=== PATIENT | female | born 1975 | race Caucasian/White ===

== ENCOUNTER → 2016-10-09 | Outpatient (CLI) | payer BC ==
[~2016-10-09] MED LIST: CLR10 PO; EPP3/2 IM; FLUT0.15; LEVO100T7 PO; MULT-506 PO; OXYC-57 PO; PROAIR INH; [UNRECOGNIZED DRUG - OTHER] PO; vitamin d PO
--- NOTE | 2016-10-10 07:38 | MAMMOGRAPHY REPORT ---
BILATERAL FIRST EVER DIGITAL SCREENING MAMMOGRAM TOMOSYNTHESIS WITH CAD: 10/09/2016 CLINICAL HISTORY: Routine screening examination. TECHNIQUE: Breast tomosynthesis in addition to standard 2D mammography was performed. Current study was also evaluated with a Computer Aided Detection (CAD) system. COMPARISON: No prior exams were available for comparison. BREAST COMPOSITION: The tissue of both breasts is heterogeneously dense, which may obscure small ma sses. FINDINGS: There are a few scattered benign appearing microcalcifications, but a discrete grouping o f microcalcifications in the anterior subareolar right breast. Although these could represent benig n calcifications such as milk of calcium, additional dedicated spot magnification views are recommen ded. There are multiple bilateral circumscribed masses scattered throughout the breasts. The circumscrib ed borders are best appreciated on the tomosynthesis images. This is a typically benign mammographi c pattern, most likely representing cysts/fibrocystic changes. No suspicious spiculated or irregula r mass or focal area of architectural distortion is seen bilaterally. IMPRESSION: ACR BI-RADS CATEGORY 0: INCOMPLETE EVALUATION: NEED ADDITIONAL IMAGING EVALUATION The grouping of microcalcifications in the anterior right breast needs additional evaluation. The patient will be called to schedule an appointment. Approximately 10% of breast cancers are not detected with mammography. A negative mammographic repor t should not delay biopsy if a clinically suggestive mass is present. Tamara Hitchcock M.D. ay/:10/09/2016 16:36:03 Tank Stave Assembler: Tina LEUNG)(Shirley), [facility] letter sent: Addl Imaging 0 BI-RADS Code: ACR BI-RADS Category 0: Incomplete Evaluation: Need Additional Imaging Evaluation
== END | disposition home or self-care (01) ==
LOC: C.MAMM 14:40
PROVIDERS: ATTEND Obstetrics & Gynecology
DX: Z12.31 Encounter for screening mammogram for malignant neoplasm of breast (principal); R92.0 Mammographic microcalcification found on diagnostic imaging of breast

== ENCOUNTER → 2016-10-24 | Outpatient (CLI) | payer BC ==
--- NOTE | 2016-10-24 15:02 | MAMMOGRAPHY REPORT ---
UNILATERAL RIGHT DIGITAL DIAGNOSTIC MAMMOGRAM AND TARGETED RIGHT ULTRASOUND: 10/24/2016 CLINICAL HISTORY: 41 year-old woman called back from baseline screening mammogram for microcalcifica tions in the anterior right breast. Patient does not have a significant family history of breast ca ncer, but was exposed to water contamination at an early age putting her at risk for developing cert ain cancers. TECHNIQUE: Spot magnification right CC and ML views were obtained. COMPARISON: Comparison is made to exam dated: 10/09/2016 mammogram - [facility]. BREAST COMPOSITION: The tissue of the right breast is heterogeneously dense, which may obscure smal l masses. FINDINGS: The spot magnification views demonstrate microcalcifications in the anterior upper outer r ight breast. On the spot magnification CC view the calcifications appear smudgy and some demonstrat e layering on the spot magnification MLO view, suggesting benign milk of calcium. However, not all of the calcifications layer and therefore a short interval follow-up diagnostic mammogram including spot magnification views is recommended to ensure stability in 6 months. A dominant partially circu mscribed 16 mm mass is also identified in the right upper outer quadrant on the spot magnification v iew, for which additional sonographic evaluation was performed. Real-time high-resolution ultrasound was performed throughout the right breast. There are multiple scattered anechoic round and oval simple cysts. However, in the 12:00 right breast, 2 cm from the n ipple, there is an isoechoic microlobulated solid mass versus dense stromal fibrosis. This measures approximately 3.5 x 3.3 x 5.3 mm, and is indeterminate. In anechoic cyst in the 12:00 periareolar right breast measures 8 mm and a second anechoic cyst measures 4 mm. Another 5 mm anechoic cyst is seen in the 3:00 right breast, 2 cm from the nipple. There is an isoechoic to hypoechoic microlobul ated lesion in the 5:00 right breast, 3 cm from the nipple measuring 4.9 x 2.6 mm, but this effaces in the radial plane and may simply represent stromal fibrosis or normal breast tissue. A dominant a nechoic simple cyst is seen in the 9:00 right breast, 2 cm from the nipple, measuring 12 x 12 mm. T his correlates well with the circumscribed mammographic mass seen on the spot magnification views. In the 9:00 right breast, 4 cm from the nipple, there is a rounded isoechoic solid versus cystic mas s measuring 3.9 x 3.7 x 4.6 mm. IMPRESSION: ACR BI-RADS CATEGORY 4: SUSPICIOUS, TARGETED ULTRASOUND ACR BI-RADS CATEGORY 4: SUSPICI OUS 1. There are multiple cysts and benign-appearing calcifications within the right breast. This const ellation of findings is most compatible with benign fibrocystic changes. 2. However a short interval follow-up right mammogram including spot magnification views is recommen ded in 6 months to ensure stability of the 2 dominant groupings of microcalcifications in the anteri or right breast. 3. Multiple anechoic cysts are seen throughout the right breast on ultrasound including a dominant benign simple cyst in the 9:00 breast. However, there are some hypoechoic possible solid masses in the right breast within the 12:00, 5:00 and 9:00 axes. The lesion with the most irregular and micro lobulated borders is located in the 12:00 axis. An ultrasound guided core needle biopsy is recommen ded of this lesion in the 12:00 right breast, 2 cm from the nipple. Pending benign pathology result s, the other lesions in the right 5:00 and 9:00 axes could be followed in 6 months, at the time of r epeat assessment of the right breast microcalcifications. These results and recommendations were discussed with the patient at the time of the exam. She tent atively scheduled to the right breast ultrasound-guided biopsy and follow-up appointment prior to le aving our department. Approximately 10% of breast cancers are not detected with mammography. A negative mammographic repor t should not delay biopsy if a clinically suggestive mass is present. Tamara Hitchcock M.D. ay/:10/24/2016 13:11:47 Barber Instructor: Stephanie PÉREZ(Gayla)(Shirley), [facility] letter sent: Abnormal 4/5 BI-RADS Code: ACR BI-RADS Category 4: Suspicious Ultrasound BI-RADS: ACR BI-RADS Category 4: Suspic ious
== END | disposition home or self-care (01) ==
LOC: C.MAMM 10:47
PROVIDERS: ATTEND Obstetrics & Gynecology
DX: R92.0 Mammographic microcalcification found on diagnostic imaging of breast (principal); R92.1 Mammographic calcification found on diagnostic imaging of breast; N60.01 Solitary cyst of right breast

== ENCOUNTER → 2016-10-31 | Outpatient (CLI) | payer BC ==
--- NOTE | 2016-10-31 15:24 | Discharge Instructions ---
Discharge Instructions Procedure Procedure Date: Oct 31, 2016. Reason for visit: Right Mass. Discharge Discharge Date: Oct 31, 2016. Discharge Diagnosis: post right breast ultrasound guided core biopsy in the 12:00 axis Instructions Activity Recommendations: Additional Limitations (see below) Return to School/Work: no limitations Recommended Home Diet: No Limitations Provider Instructions: ACTIVITY RECOMMENDATIONS: * No lifting, pushing, pulling or exercising the affected side for three days. RETURN TO SCHOOL/WORK: * You may return to work/school after the procedure, but do not perform any strenuous activities for 24 to 48 hours. MEDICATIONS: * Tylenol (two 325 mg) every four to six hours if needed for mild pain (if not allergic to Tylenol). DIET: * Resume previous diet. SPECIAL CARE INSTRUCTIONS: * Keep biopsy site dry for 24 hours. May shower after 24 hours, but do not soak (bathe) incision. * May remove Tegaderm (plastic patch) tomorrow AFTER showering. * Leave the steri-strips on for one week. Allow the steri-strips to fall off by themselves. If not off after one week, you may remove them. You may place a Bandaid crosswise over the strips, if desired. * Apply ice 10 minutes on and 10 minutes off as needed. * Wear a bra at bedtime to sleep more comfortably for 2-3 days. * Your referring physician should have the results after approximately 5 to 7 business days. * Call for unusual bleeding, fever, drainage, etc or if you have any questions call [phone] during normal business hours or after hours call Dr Hitchcock, . FOLLOW UP VISIT: Follow-up with Referring Physician as scheduled. Allergies Coded Allergies: Wheat (Verified Adverse Reaction, Intermediate, stomach pain and diarrhea , 05/01/16) Chip Blancas Recommendations: Call your doctor if: * Temperature above 101 degrees * Pain not relieved by pain medicine ordered * There is increased drainage or redness from any incision * You have any unanswered questions or concerns. Your Doctors Instructions noted above were prepared by provider Tamara Hitchcock. Patient Signature Section: Patient Instructions Signature Page Odessa Parrish Patient (or Guardian) Signature/Date: I have read and understand the instructions given to me by my caregivers. Caregiver/RN/Doctor Signature/Date: The above-named patient and/or guardian has received patient instructions on this date. + Original Patient Signature Page (only) stays with chart. Please make copy for patient.
--- NOTE | 2016-11-01 13:33 | MAMMOGRAPHY REPORT ---
THIS REPORT HAS BEEN AMENDED. ULTRASOUND GUIDED BIOPSY RIGHT BREAST: 10/31/2016 CLINICAL HISTORY: Indeterminate isoechoic microlobulated mass in the 12:00 right breast. Patient pr esents for ultrasound-guided core needle biopsy. COMPARISON: Comparison is made to exams dated: 10/09/2016 mammogram, 10/24/2016 mammogram, and 10/25/19 17 ultrasound - [facility]. PATIENT CONSENT: The procedure, risks and benefits were discussed with the patient and informed writ ten consent was obtained. Specific risks to this procedure include: bleeding, infection, puncture of adjacent structure, nontarget biopsy, sampling error and medication reaction. PROCEDURE DESCRIPTION: A time out was performed and the right breast was agreed as the site of biops y. The skin was prepped and draped in the usual sterile fashion. The solid microlobulated subcentime ter mass in the 12:00 right breast was chosen as the target for biopsy. Subcutaneous and intraparenc hymal 1% buffered lidocaine was administered as local anesthesia. A skin incision was made. Through the incision, 7 samples were taken with a 14 gauge Achieve biopsy device. A metallic marker was rigoberto tyler at the biopsy site. Hemostasis was achieved after manual compression. The patient tolerated the procedure well and there was no immediate complication. The samples were sent to the pathology depa rtment in an appropriately labeled container. Postprocedure right CC and ML tomosynthesis images were obtained. There is a new ribbon-shaped meta llic biopsy marker and no significant hematoma in the 12:00 right breast, at the site of the biopsie d isoechoic microlobulated mass seen on ultrasound. IMPRESSION: ULTRASOUND GUIDED BIOPSY Status post ultrasound-guided core needle biopsy of an indeterminate solid mass in the 12:00 right b reast, with biopsy marker placed at the site. Pending benign pathology results, follow-up bilateral diagnostic mammograms including spot magnifica tion views and follow-up targeted ultrasound is recommended to ensure stability of other findings in each breast, as described on the diagnostic mammogram and ultrasound report from 10/24/2016. The patient will receive notification of the biopsy results from her referring physician. Tamara Hitchcock M.D. ay/:10/31/2016 17:33:01 Research Advisor: Shawna LEUNG)(Shirley), [facility] AMENDMENT: 11/08/2016 Tamara Hitchcock M.D. Pathology results from the ultrasound-guided core needle biopsy of an indeterminate microlobulated s olid mass in the 12:00 right breast yielded fibrocystic change with apocrine metaplasia. A microcal cification is noted. No tumor is seen. The pathology results are concordant with the imaging appea therese, as the top differential considerations prior to biopsy included focal fibrocystic change and stromal fibrosis. Therefore, continue with prior recommendations of repeat right diagnostic mammogr ams include spot magnification views and repeat targeted ultrasound in the right breast in 6 months.
--- NOTE | 2016-11-01 13:36 | MAMMOGRAPHY REPORT ---
UNILATERAL RIGHT DIGITAL DIAGNOSTIC MAMMOGRAM: 10/31/2016 CLINICAL HISTORY: Indeterminate isoechoic to hypoechoic microlobulated solid-appearing mass in the 1 2:00 right breast. Patient presented for ultrasound guided core biopsy. Please refer to the report from right breast ultrasound guided core biopsy performed [facility] [facility] for full detail. IMPRESSION: POST PROCEDURE IMAGING FOR MARKER PLACEMENT Please refer to the report from right breast ultrasound guided core biopsy performed at the [facility] [place] [facility] for full detail. Approximately 10% of breast cancers are not detected with mammography. A negative mammographic repor t should not delay biopsy if a clinically suggestive mass is present. Tamara Hitchcock M.D. ay/:10/31/2016 17:30:31 Construction Millwright: Shawna LEUNG)(M), [facility] BI-RADS Code: Post Procedure Imaging For Marker Placement
== END | disposition home or self-care (01) ==
LOC: C.MAMM 14:13
PROVIDERS: ATTEND Obstetrics & Gynecology
DX: R92.0 Mammographic microcalcification found on diagnostic imaging of breast (principal); N60.81 Other benign mammary dysplasias of right breast

== ENCOUNTER → 2016-11-16 | Outpatient (CLI) | payer BC ==
[~2016-11-16] MED LIST changes: -OXYC-57 PO
--- NOTE | 2016-11-16 16:34 | DIAGNOSTIC IMAGING REPORT ---
ULTRASOUND OF THE THYROID GLAND CLINICAL HISTORY: Thyroid nodules. COMPARISON STUDY: No priors. TECHNIQUE: Real-time, grayscale, and color flow sonography of the thyroid gland is performed utilizing a high-frequency linear transducer. Images are reviewed in the transverse and longitudinal planes. FINDINGS: Right lobe: The right lobe of the thyroid gland is normal in size and slightly heterogeneous in echotexture, measuring 3.5 x 1.0 x 1.1 cm. Left lobe: The left lobe of the thyroid gland is normal in size and slightly heterogeneous in echotexture, measuring 3.9 x 1.2 x 1.1 cm. Isthmus: The thyroid isthmus is normal in appearance and measures 0.2 cm in AP diameter. IMPRESSION: Unremarkable sonographic assessment of the thyroid gland. No thyroid nodule is identified. Electronically signed by: Roberto Carlos Whiting M.D. 11/16/2016 4:31 PM Dictated Date/Time: 11/16/2016 4:30 PM
== END | disposition home or self-care (01) ==
LOC: C.ULTR 15:44
PROVIDERS: ATTEND Internal Medicine Endocrinology, Diabetes & Metabolism
DX: E04.2 Nontoxic multinodular goiter (principal)

== ENCOUNTER → 2016-11-26 | Day surgery (SDC) | payer BC ==
[~2016-11-26] VITALS: Ht 165.1 cm; Wt 64.0 kg
[~2016-11-26] MED LIST changes: +COSYNTROPIN INJ 1 MCG in SYRINGE 0 ML IV SCH
[2016-11-26 08:35] VITALS: BP 115/57; PULSE 61; TEMP 36.9; O2SAT 95; Ht 165.1 cm; Wt 64.0 kg
[2016-11-26 09:56] VITALS: BP 102/68; PULSE 75; TEMP 36.8; O2SAT 99
== END | disposition home or self-care (01) ==
LOC: C.MTU 07:40
PROVIDERS: ATTEND Internal Medicine Endocrinology, Diabetes & Metabolism
DX: E27.49 Other adrenocortical insufficiency (principal)

== ENCOUNTER → 2016-12-19 | Outpatient (CLI) | payer BC ==
[~2016-12-19] MED LIST changes: -COSYNTROPIN INJ 1 MCG in SYRINGE 0 ML IV SCH
--- NOTE | 2016-12-19 16:44 | MAMMOGRAPHY REPORT ---
BILATERAL DIGITAL DIAGNOSTIC MAMMOGRAM TOMOSYNTHESIS WITH CAD AND TARGETED BILATERAL ULTRASOUND: 12/03 CLINICAL HISTORY: The patient had a recent ultrasound-guided core needle biopsy of the right breast 10/31/2016, and reports a palpable lump near the biopsy site. She also reports a new left breast pal pable lump. TECHNIQUE: Breast tomosynthesis in addition to standard 2D mammography was performed. Current study was also evaluated with a Computer Aided Detection (CAD) system. Bilateral CC and MLO 2-D and edmar synthesis images were obtained. COMPARISON: Comparison is made to exams dated: 10/31/2016 mammogram, 10/31/2016 ultrasound biopsy, ultrasound, 10/24/2016 mammogram, and 10/09/2016 mammogram - [facility]. BREAST COMPOSITION: The tissue of both breasts is heterogeneously dense, which may obscure small ma sses. FINDINGS: A triangle marker bright the site of the palpable lump in the right upper outer quadrant, and a triangle marker bright the site of the palpable lump in the left upper inner quadrant. A biops y marker clip is again noted in the right 12:00 breast from prior benign ultrasound-guided core need le biopsy. Again noted are multiple round/oval circumscribed benign-appearing masses scattered thro ughout both breasts, which are considered benign given the multiplicity and bilaterality and likely represent cysts. The largest cyst measures 19 mm in the right upper outer quadrant. Calcifications seen within the anterior breast do not appear significantly changed. Targeted ultrasound was performed of the area of the palpable lump pointed out by the patient, in th e right breast at approximately 12:00 periareolar region. A few small round/oval anechoic benign si mple cysts are noted in this region, including a 3 x 3 mm cyst and a 4 x 3 mm cyst, which are felt t o be incidentally noted. Other cysts were noted during the exam, including a 1.5 x 1.5 cm anechoic benign cyst in the right breast at 11:00, which corresponds with the dominant mammographic mass. No suspicious masses or other suspicious sonographic abnormalities are evident. Targeted ultrasound was performed of the left 11:00 breast, 4 cm from the nipple, at the site of the palpable lump pointed out by the patient. Sonographically normal tissue is seen in this region, wi thout evidence of a mass or other suspicious sonographic abnormality. IMPRESSION: ACR-BI-RADS CATEGORY 3: PROBABLY BENIGN, TARGETED ULTRASOUND ACR-BI-RADS CATEGORY 3: MA OBABLY BENIGN No suspicious mammographic or sonographic abnormality at the site of the palpable bilateral breast l umps. Recommend clinical follow-up; any decision to biopsy should be based on clinical grounds. Th e patient will be undergoing short follow-up of a right breast calcifications and right breast callie s seen on the 10/24/2016 exam, which is due around April. The palpable findings can be reassesse d at that time, as long as there has been no clinical change in the palpable findings in the interva l. The patient has been verbally notified of the results. Approximately 10% of breast cancers are not detected with mammography. A negative mammographic repor t should not delay biopsy if a clinically suggestive mass is present. Celeste Weiner M.D. ah/:12/19/2016 15:02:16 Receiving Worker: Stephanie Cardenas, [facility] letter sent: Follow Up Recommended 3 BI-RADS Code: ACR-BI-RADS Category 3: Probably Benign Ultrasound BI-RADS: ACR-BI-RADS Category 3: P robably Benign
== END | disposition home or self-care (01) ==
LOC: C.MAMM 13:20
PROVIDERS: ATTEND Physician Assistant
DX: N63 Unspecified lump in breast (principal)

== ENCOUNTER → 2017-04-26 | Outpatient (CLI) | payer BC ==
--- NOTE | 2017-04-26 12:44 | MAMMOGRAPHY REPORT ---
UNILATERAL RIGHT DIGITAL DIAGNOSTIC MAMMOGRAM TOMOSYNTHESIS WITH CAD AND TARGETED RIGHT ULTRASOUND: CLINICAL HISTORY: 6 Month Follow-up Right. TECHNIQUE: Breast tomosynthesis in addition to standard 2D mammography was performed. Current study was also evaluated with a Computer Aided Detection (CAD) system. Right CC and MLO 2-D and tomosynthe sis images and spot magnification right cc and ML views were obtained. COMPARISON: Comparison is made to exams dated: 12/19/2016 mammogram, 12/19/2016 ultrasound, 10/24/2016 ultrasound, 10/24/2016 mammogram, and 10/09/2016 mammogram - [facility]. BREAST COMPOSITION: The tissue of the right breast is heterogeneously dense, which may obscure small masses. FINDINGS: Spot identification views of the right breast demonstrate 2 groups of calcifications in th e right anterior breast. Many of the calcifications demonstrated layering on the prior 10/24/2016 lat eral view, suggestive of milk of calcium. The calcifications are not significantly changed compared to the October 2016 exam and are probably benign and likely represent milk of calcium/fibrocystic salazar es. The remainder of the right breast is stable compared to prior exams, without suspicious masses, calci fications, or areas of architectural distortion noted. A biopsy marker clip is again noted within th e right 12:00 breast from prior benign ultrasound-guided biopsy. Multiple partially circumscribed an d partially obscured masses are again noted throughout the right breast on the tomosynthesis images, which likely represent cysts. When questioned about the previously palpable lumps which were worked up December 2016, the patient report s that the lumps are less prominent although she still somewhat feels the right breast lump. Targete d ultrasound was performed of the area of the palpable right breast lump in the right 12:00 periareol ar breast, which shows no suspicious masses or other suspicious sonographic abnormalities. Incidenta lly noted in the right 12:00 subareolar breast is an anechoic benign simple cyst measuring 12 mm. Ta rgeted ultrasound was performed of the area of the previously seen masses for which follow-up was rec ommended. In the right breast at 5:00, 3 cm from the nipple, there is an isoechoic circumscribed 4 x 5 mm mass, which is stable compared to the October 2016 exam and may represent a normal fat lobule. I n the right breast at 9:00, 4 cm from the nipple, there is a round circumscribed and partially anecho ic and partially hypoechoic mass which measures 4 x 4 x 5 mm, stable compared to the October 2016 exam and likely represents a complicated cyst. IMPRESSION: ACR-BI-RADS CATEGORY 3: PROBABLY BENIGN, TARGETED ULTRASOUND ACR-BI-RADS CATEGORY 3: PRO BABLY BENIGN 1. Grouped calcifications in the right anterior breast are stable dating back to the October 2016 exam , and are probably benign and likely represent milk of calcium/fibrocystic changes. 2. No suspicious abnormality at the site of the palpable right breast lump which is now less promine nt per the patient. Recommend clinical follow-up. 3. Isoechoic 5 mm mass in the right 5:00 breast and hypoechoic 5 mm mass in the right 9:00 breast ar e stable compared to the October 2016 exam and are probably benign. 4. Recommend bilateral diagnostic tomosynthesis mammograms in 6 months, to reevaluate the right donato st masses and calcifications and for routine mammography of the left breast. The patient has been verbally notified of the results. Approximately 10% of breast cancers are not detected with mammography. A negative mammographic report should not delay biopsy if a clinically suggestive mass is present. Celeste Weiner M.D. ah/:04/26/2017 12:07:24 Recruiting Specialist: Shawna PÉREZ(Gayla)(M), [facility] letter sent: Follow Up Recommended 3 BI-RADS Code: ACR-BI-RADS Category 3: Probably Benign Ultrasound BI-RADS: ACR-BI-RADS Category 3: Pr obably Benign
== END | disposition home or self-care (01) ==
LOC: C.MAMM 08:14
PROVIDERS: ATTEND Obstetrics & Gynecology
DX: R92.1 Mammographic calcification found on diagnostic imaging of breast (principal); N63 Unspecified lump in breast

== ENCOUNTER → 2017-09-24 | Outpatient (CLI) | payer OTHER | END | disposition home or self-care (01) | LOC: C.LAB1850 16:30 | PROVIDERS: ATTEND Internal Medicine Endocrinology, Diabetes & Metabolism | DX: E06.3 Autoimmune thyroiditis (principal) ==

== ENCOUNTER → 2017-10-22 | Outpatient (CLI) | payer OTHER ==
--- NOTE | 2017-10-22 14:55 | MAMMOGRAPHY REPORT ---
BILATERAL DIGITAL DIAGNOSTIC MAMMOGRAM TOMOSYNTHESIS WITH CAD AND TARGETED RIGHT ULTRASOUND: 8 CLINICAL HISTORY: The patient presents for short interval follow-up of right breast calcifications an d right breast masses. Due for annual mammography of the left breast. She denies any new lumps or o ther complaints. TECHNIQUE: Breast tomosynthesis in addition to standard 2D mammography was performed. Current study was also evaluated with a Computer Aided Detection (CAD) system. Bilateral CC and MLO 2D and tomosyn thesis images and saponification right CC and ML views were obtained. COMPARISON: Comparison is made to exams dated: 04/26/2017 mammogram, 12/19/2016 mammogram, 10/24/2016 m ammogram, 10/09/2016 mammogram, 10/31/2016 mammogram, and 12/19/2016 ultrasound - [facility] enter. BREAST COMPOSITION: The tissue of both breasts is heterogeneously dense, which may obscure small mas ses. FINDINGS: Spot magnification views of the right breast again demonstrate 2 groups of calcifications w ithin the right anterior breast. The calcifications are stable dating back to least the October 2016 e xam and the majority of the calcifications demonstrate layering on the lateral view consistent with m ilk of calcium. The calcifications are benign and compatible with milk of calcium/fibrocystic change s. The remainder of both breasts demonstrate no suspicious masses, calcifications, or areas of [employer] ural distortion. Multiple circumscribed and partially circumscribed/partially obscured masses are ag ain noted bilaterally, which have fluctuated compared to prior mammograms and are most compatible wit h cysts. Targeted ultrasound was performed to the area of the previously seen breast breast masses for which f ollow-up was recommended. In the right breast at 5:00, 3 cm from the nipple, there is a nearly anech oic 3 x 4 x 3 mm mass, which is not significantly changed in size and appears more cystic compared to the prior exam and is therefore compatible with a cyst. An anechoic benign 1.5 cm cyst is seen with in the right 6:00 periareolar breast. Numerous cysts were seen in the right 9:00 breast during the e xam. An anechoic benign cyst measuring 4 x 2 mm is seen within the right breast at 9:00, 4 cm from t he nipple, which is not significantly changed in size dating back to the October 2016 exam and is consi stent with a benign cyst. No suspicious solid masses were evident. IMPRESSION: ACR BI-RADS CATEGORY 2: BENIGN, TARGETED ULTRASOUND ACR BI-RADS CATEGORY 2: BENIGN The right anterior breast calcifications are stable dating back to the October 2016 exam and are benign and compatible with milk of calcium/fibrocystic changes. The right 5:00 and 9:00 breast masses are not significantly changed and are consistent with benign cysts. There is no mammographic or targeted sonographic evidence of malignancy. A 1 year screening mammogram is recommended. The patient has been verbally notified of the results. Approximately 10% of breast cancers are not detected with mammography. A negative mammographic report should not delay biopsy if a clinically suggestive mass is present. Celeste Weiner M.D. ah/:10/22/2017 13:56:14 Ell Teacher: Monica LEUNG)(Shirley), [facility] letter sent: Normal 1/2 BI-RADS Code: ACR BI-RADS Category 2: Benign Ultrasound BI-RADS: ACR BI-RADS Category 2: Benign
== END | disposition home or self-care (01) ==
LOC: C.MAMM 13:13
PROVIDERS: ATTEND Obstetrics & Gynecology
DX: R92.1 Mammographic calcification found on diagnostic imaging of breast (principal); N63.10 Unspecified lump in the right breast, unspecified quadrant

== ENCOUNTER → 2017-10-28 | Outpatient (CLI) | payer OTHER ==
--- NOTE | 2017-10-28 16:44 | DIAGNOSTIC IMAGING REPORT ---
KUB CLINICAL HISTORY: [id number] COMPARISON STUDY: No previous studies for comparison. FINDINGS: There is no pathologic bowel dilatation. There is scattered stool throughout the colon. There are multiple pelvic basin calcifications, likely representing phleboliths. IMPRESSION: No evidence of pathologic bowel dilatation Electronically signed by: Ran Garcia M.D. 10/28/2017 4:42 PM Dictated Date/Time: 10/28/2017 4:42 PM
== END | disposition home or self-care (01) ==
LOC: C.RAD1850 16:20
PROVIDERS: ATTEND Nurse Practitioner Adult Health
DX: K30 Functional dyspepsia (principal)